=== PATIENT | female | born 1960 | race Caucasian/White ===

== ENCOUNTER → 2017-08-20 | Outpatient (CLI) | payer OTHER ==
[~2017-08-20] MED LIST: [UNRECOGNIZED DRUG - REMARK]
--- NOTE | 2017-08-20 14:06 | RADIOLOGY IMAGING REPORT ---
FAC[place] [facility] [place] NAME: Nasima Ybarra : 1960 MR: [id number] V: [id number] EXAM DATE: ORDERING PHYSICIAN: SHUBHAM ENCINAS TECHNOLOGIST: Location: [facility] Patient: Nasima Ybarra : 1960 Visit/Account:[id number] Date of Sevice: 08/20/2017 Exam type: CHEST PA AND LAT History: Pneumonia x3 weeks, acute bronchiolitis, 15 years and smoking history Comparison: None. Findings: There is patchy airspace consolidation in the right middle lobe. There is mild peribronchial thicken ing also noted throughout the lungs. No evidence of pleural effusions or overt pulmonary edema. Car diac silhouette is normal in size. IMPRESSION: 1. Patchy airspace consolidation right middle lobe consistent with infiltrate and/or atelectasis Mild peribronchial thickening throughout the lungs may be related to an acute peribronchial inflammat ory process versus chronic bronchitis given the prior smoking history. Report Dictated By: Shirin Grant MD at 08/20/2017 2:01 PM Report E-Signed By: Shriin Grant MD at 08/20/2017 2:03 PM WSN:[email or web address]
== END ==
LOC: RAD 12:19
PROVIDERS: ATTEND Nurse Practitioner Family
DX: R91.8 Other nonspecific abnormal finding of lung field (principal)
CPT/HCPCS: 71046